=== PATIENT | female | born 1970 | race Caucasian/White ===

== ENCOUNTER → 2016-11-02 | Outpatient (CLI) | payer OTHER | END | disposition home or self-care (01) | LOC: CFH 10:37 | PROVIDERS: ATTEND Obstetrics & Gynecology | DX: Z12.31 Encounter for screening mammogram for malignant neoplasm of breast (principal) | CPT/HCPCS: G0202 ==

== ENCOUNTER → 2018-01-24 | Outpatient (CLI) | payer OTHER | END | disposition home or self-care (01) | LOC: CFH 14:50 | PROVIDERS: ATTEND Obstetrics & Gynecology | DX: Z12.31 Encounter for screening mammogram for malignant neoplasm of breast (principal); Z80.3 Family history of malignant neoplasm of breast | CPT/HCPCS: 77063; 77067 ==

== ENCOUNTER → 2018-09-28 | Outpatient (CLI) | payer OTHER | END | disposition home or self-care (01) | LOC: CFH 12:03 | PROVIDERS: ATTEND Obstetrics & Gynecology | DX: N60.02 Solitary cyst of left breast (principal) | CPT/HCPCS: 76641; 77065; G0279 ==

== ENCOUNTER → 2020-04-16 | Outpatient (CLI) | payer BC, OTHER | END | disposition home or self-care (01) | LOC: CFH 09:52 | PROVIDERS: ATTEND Obstetrics & Gynecology | DX: Z12.31 Encounter for screening mammogram for malignant neoplasm of breast (principal); Z12.39 Encounter for other screening for malignant neoplasm of breast; N60.19 Diffuse cystic mastopathy of unspecified breast; N60.02 Solitary cyst of left breast; N60.01 Solitary cyst of right breast | CPT/HCPCS: 76641; 77063; 77067 ==